=== PATIENT | female | born 2000 | race Caucasian/White ===

== ENCOUNTER 2024-06-10 12:50 | Outpatient (CLI) | payer OTHER, SELFPAY | END 2024-06-10 12:51 | disposition home or self-care (01) | LOC: NFLDREF 17:18 | PROVIDERS: Visit Provider Nurse Practitioner | DX: R35.0 Frequency of micturition (principal); N30.01 Acute cystitis with hematuria; Z71.1 Person with feared health complaint in whom no diagnosis is made | CPT/HCPCS: 87086 ==